=== PATIENT | female | born 1990 | race Caucasian/White ===

== ENCOUNTER 2023-06-07 08:22 | Outpatient (CLI) | payer BC | END 2023-06-07 08:23 | disposition home or self-care (01) | LOC: ULT 08:22 | PROVIDERS: ATTEND Internal Medicine Gastroenterology | DX: B17.2 Acute hepatitis E (principal); K59.09 Other constipation; R79.89 Other specified abnormal findings of blood chemistry | CPT/HCPCS: 76705 ==